=== PATIENT | female | born 1980 | race African-American/Black ===

== ENCOUNTER 2021-11-14 06:29 | Emergency (ER) | payer OTHER ==
[2021-11-14] MEDS ORDERED: MIDAZOLAM HCL 5 MG/1 ML Single Dose Vial IM ONE (06:38)
[2021-11-14] MEDS ORDERED: MIDAZOLAM HCL 2 MG/2 ML SINGLE DOSE VIAL IVPUSH ONE (06:39)
[2021-11-14] MEDS ORDERED: MAGNESIUM SULFATE IN WATER 2 GM/50 ML IVPB IVPB ONE ×4 (07:01→08:17)
[2021-11-14] MEDS ORDERED: LABETALOL HCL 5 MG/1 ML (100MG/20 ML VIAL) IVPUSH ONE ×2 (07:01→08:26)
[2021-11-14 07:02] VITALS: TEMP 100.3; BMI 36.5
[2021-11-14] MEDS ORDERED: LABETALOL HCL 5 MG/1 ML (200MG/40ML VIAL) IVPB ONE (07:04)
[2021-11-14] MEDS ORDERED: MAGNESIUM SULFATE 20GM/500ML - 20 GM/500 ML INFUS.BAG IV SCH (07:45)
[2021-11-14] MEDS ORDERED: MAGNESIUM 4GM/H20 - 4 GM/100 ML IVPB IVPB ONE (07:58)
[2021-11-14 08:18] LABS: HEMATOCRIT 39.2 % (32.4-45.2); HEMOGLOBIN 13.2 GM/dL (10.7-15.3); LYMPH % 9.7 % (8-40); MCH 29.4 pg (25.7-33.7); MCHC 33.7 g/dl (32.0-36.0); MEAN CELL VOLUME 87.2 fl (80-96); MEAN PLT VOLUME 8.3 fl (7.5-11.1); MONO % 6.9 % (3.8-10.2); NEUT % 82.4 % (42.8-82.8); PLATELET COUNT 42 10^3/uL (134-434); RBC 4.49 M/mm3 (3.60-5.2); RDW 14.4 % (11.6-15.6); WHITE BLOOD COUNT 14.2 K/mm3 (4.0-10.0)
[2021-11-14 08:27] LABS: INR 1.14 (0.83-1.09); PROTHROMBIN TIME (PATIENT) 13.1 SEC (9.7-13.0)
[2021-11-14 08:30] LABS: ACTIVATED PTT 33.9 SECONDS (25.2-36.5)
[2021-11-14 08:34] LABS: CHLORIDE 109 mmol/L (98-107); SODIUM 141 mmol/L (136-145)
[2021-11-14 08:36] LABS: CALCIUM 9.1 mg/dL (8.5-10.1)
[2021-11-14 08:37] LABS: ALBUMIN 2.6 g/dl (3.4-5.0); ANION GAP 21 MMOL/L (8-16); BLOOD UREA NITROGEN 21.4 mg/dL (7-18); CO2 12 mmol/L (21-32); GLUCOSE,RANDOM 116 mg/dL (74-106)
[2021-11-14 08:40] LABS: CREATININE 3.1 mg/dL (0.55-1.3); SGPT/ALT 486 U/L (13-61)
[2021-11-14 08:42] LABS: ALK PHOS 197 U/L (45-117); BILIRUBIN,TOTAL 8.8 mg/dL (0.2-1); TOT PROT 5.9 g/dl (6.4-8.2); VENOUS BASE EXCESS -17.7 mmol/L (-2-2); VENOUS O2 SATURATION 86.4 % (70-80)
[2021-11-14 08:47] LABS: VENOUS PH 7.139 (7.310-7.410)
[2021-11-14 08:55] LABS: LACTIC ACID 15.5 mmol/L (0.4-2.0)
[2021-11-14 08:59] LABS: MAGNESIUM 2.8 mg/dL (1.8-2.4)
[2021-11-14] MEDS ORDERED: SODIUM CHLORIDE 1,000 ML IV STA (09:01)
[2021-11-14 09:02] VITALS: BP 149/86; PULSE 98
[2021-11-14 09:32] LABS: LDH 1906 U/L (84-246); SGOT/AST 1055 U/L (15-37)
[2021-11-14 09:49] LABS: URINE AMPHETAMINES NEGATIVE (NEGATIVE); URINE BENZODIAZEPINES NEGATIVE (NEGATIVE)
[2021-11-14 09:50] LABS: COCAINE, UR NEGATIVE (NEGATIVE); METHADONE, UR NEGATIVE (NEGATIVE); OPIATES, URI NEGATIVE (NEGATIVE); PHENCYCLIDINE,URINE NEGATIVE (NEGATIVE); URINE BARBITURATES NEGATIVE (NEGATIVE)
[2021-11-14 10:05] LABS: URINE APPEARANCE Turbid; URINE BILIRUBIN 3+ (NEGATIVE); URINE COLOR Amber; URINE GLUCOSE (UA) Negative (NEGATIVE); URINE KETONE Negative (NEGATIVE); URINE LEUK ESTERASE Negative (NEGATIVE); URINE NITRITE Negative (NEGATIVE); URINE PROTEIN 3+ (NEGATIVE)
[2021-11-14 10:08] LABS: EPI CELLS 3+ /uL (0-25.1); URINE RBC 50-100 /uL (0-23.9); URINE WBC 0-5 /uL (0-25.8)
== END 2021-11-14 09:20 | disposition short-term general hospital (02) ==
LOC: JER 06:29
PROC: 3E033GC Introduction of Other Therapeutic Substance into Peripheral Vein, Percutaneous Approach (ICD-10-PCS; principal; 2021-11-14)
PROC: 3E033GC Introduction of Other Therapeutic Substance into Peripheral Vein, Percutaneous Approach (ICD-10-PCS; 2021-11-14)
PROC: 3E033GC Introduction of Other Therapeutic Substance into Peripheral Vein, Percutaneous Approach (ICD-10-PCS; 2021-11-14)
PROC: 3E033GC Introduction of Other Therapeutic Substance into Peripheral Vein, Percutaneous Approach (ICD-10-PCS; 2021-11-14)
PROC: 3E033GC Introduction of Other Therapeutic Substance into Peripheral Vein, Percutaneous Approach (ICD-10-PCS; 2021-11-14)
PROC: 3E033NZ Introduction of Analgesics, Hypnotics, Sedatives into Peripheral Vein, Percutaneous Approach (ICD-10-PCS; 2021-11-14)
PROC: 3E023NZ Introduction of Analgesics, Hypnotics, Sedatives into Muscle, Percutaneous Approach (ICD-10-PCS; 2021-11-14)
PROC: 3E0337Z Introduction of Electrolytic and Water Balance Substance into Peripheral Vein, Percutaneous Approach (ICD-10-PCS; 2021-11-14)
DX: O15.02 Eclampsia complicating pregnancy, second trimester (principal); O14.22 HELLP syndrome (HELLP), second trimester; O16.2 Unspecified maternal hypertension, second trimester; R51.9 Headache, unspecified; Z3A.19 19 weeks gestation of pregnancy
CPT/HCPCS: 36415; 70450-TC; 76801-TC; 80053; 80307; 81003; 82553; 82728; 82803; 82962; 83010; 83605; 83615; 83735; 84443; 84702; 85025; 85610; 85730; 86850; 86900; 86901; 87040; 87086; 93005; 93010; 99285-25